=== PATIENT | male | born 1950 ===

== ENCOUNTER 2021-02-20 06:16 | Day surgery (SDC) | payer OTHER ==
[~2021-02-20 06:16] MED LIST: GLIMEPIRIDE4 M1 PO; LEVO-T88 MCG PO; LIPITOR20 MG PO; METFORMIN HCL1000 M2 PO; OMEGA-31000 MG PO; TOPROL XL50 M1 PO; TRADJENTA5 MG PO; WARFARIN SODIUM5 MG PO
== END 2021-02-20 20:25 | disposition home or self-care (01) ==
LOC: CIR.AMB 06:16 → EDSEX 09:30 → CIR.AMB 09:30
PROVIDERS: ATTEND Colon & Rectal Surgery
DX: D12.9 Benign neoplasm of anus and anal canal (principal); K64.1 Second degree hemorrhoids; Z20.822 Contact with and (suspected) exposure to COVID-19